=== PATIENT | male | born 1955 | race Asian ===

== ENCOUNTER 2017-09-10 06:20 | Observation (INO) | END 2017-09-12 19:40 | disposition home or self-care (01) | DX: I70.212 Atherosclerosis of native arteries of extremities with intermittent claudication, left leg (principal); Z86.73 Personal history of transient ischemic attack (TIA), and cerebral infarction without residual deficits; I10 Essential (primary) hypertension; Z98.890 Other specified postprocedural states; Z72.89 Other problems related to lifestyle; Z72.0 Tobacco use | CPT/HCPCS: 37221; 71010; 75630; 80048; 80061; 83735; 85025; 85610; 85730; 93005; C1760; C1769; C1875; C1887; C1894; J0360; J1644; J2250; J3010; Q9967; Z7500; Z7610 ==